=== PATIENT | male | born 1965 | race African-American/Black ===

== ENCOUNTER 2020-10-05 17:31 | Emergency (ER) | payer MEDICAID ==
[~2020-10-05] VITALS: Ht 188 cm; Wt 120.0 kg
[2020-10-05 17:34] VITALS: BP 152/78
[2020-10-05] MEDS ORDERED: ACETAMINOPHEN 325MG TABLET PO ONE (18:45)
[2020-10-05] MEDS ORDERED: LIDOCAINE 1%/EPI 1:100,000 10 ML VIAL IJ ONE (18:45)
[2020-10-05] MEDS ORDERED: BACITRACIN ZINC OINT UDPKT TOP ONE (18:45)
[2020-10-05] MEDS: LIDOCAINE HCL/EPINEPHRINE 1%-EPI 1:100,000 20 ML VIAL INFIL NR ×2 (20:00→21:06)
== END 2020-10-05 21:11 | disposition home or self-care (01) ==
LOC: ER 17:31
DX: S01.81XA Laceration without foreign body of other part of head, initial encounter (principal); S01.411A Laceration without foreign body of right cheek and temporomandibular area, initial encounter; R68.84 Jaw pain; S01.511A Laceration without foreign body of lip, initial encounter; Y04.2XXA Assault by strike against or bumped into by another person, initial encounter; Y93.89 Activity, other specified; Y92.89 Other specified places as the place of occurrence of the external cause; R03.0 Elevated blood-pressure reading, without diagnosis of hypertension
CPT/HCPCS: 13152; 99283; J3490; Z7610

== ENCOUNTER 2020-10-14 17:29 | Emergency (ER) | payer MEDICAID ==
[~2020-10-14] VITALS: Ht 188 cm; Wt 100.0 kg
[2020-10-14 17:48] VITALS: BP 123/77
[2020-10-14] MEDS ORDERED: IBUPROFEN 600MG TABLET PO ONE (20:00)
[2020-10-14] MEDS ORDERED: BACITRACIN ZINC OINT UDPKT TOP ONE (20:15)
== END 2020-10-14 20:25 | disposition home or self-care (01) ==
LOC: ER 17:29
DX: Z48.02 Encounter for removal of sutures (principal)
CPT/HCPCS: 99281

== ENCOUNTER 2022-06-19 19:32 | Emergency (ER) | payer MEDICAID | END 2022-06-19 20:30 | disposition left against medical advice (07) | LOC: ER 19:32 | DX: Z53.21 Procedure and treatment not carried out due to patient leaving prior to being seen by health care provider (principal) ==